=== PATIENT | female | born 1995 | race African-American/Black ===

== ENCOUNTER 2017-02-25 12:37 | Emergency (ER) | payer BC, OTHER ==
[2017-02-25 12:45] VITALS: BP 130/77
--- NOTE | 2017-02-25 13:45 | ERNOTE ---
Chest Pain/Cardiac HPI Chief Complaint: Chest Pain Time Seen by Provider: 02/25/17 12:44 Source: patient Exam Limitations: no limitations Immunizations: IMMUNIZATION HX Immunizations Up to Date Yes History of Influenza Vaccine No Hx Pneumococcal Vaccination No Allergies/Adverse Reactions: Allergies No Known Allergies Allergy (Verified 02/25/17 12:47) Home Medications: HOME MEDICATIONS Ibuprofen [Motrin] 800 mg PO TID PRN 5 Days tablet 02/25/17 [Last Taken Unknown ] Narrative: Patient presents for left anterior chest wall pain. Patient has been seen at [place] and discharged home. sHe states that she is not sure if she is . Denies any cough congestion or fever Review of Systems - Review of Systems Constitutional: Present: no symptoms reported EYE: Present: no symptoms reported Respiratory: Present: no symptoms reported Cardiology: Present: See HPI - Patient's Past Medical History Patient History - Medical: No pertinent hx Patient History - Cardiac/Respiratory: No pertinent hx Patient History - Cancer: No Hx of Cancer Patient History - Surgical Procedures: Ear Tubes Patient History - Other: None - Family History Father Family History - Medical: Diabetes Type 2 - Social History Living Situations: home Psych History: No pertinent hx Smoking Status: Never smoker Have you smoked in the past 12 months: No - Immunizations Immunizations Up to Date: Yes Hx Pneumococcal Vaccination: No History of Influenza Vaccine: No Physical Exam - Physical Exam General Appearance: Present: wd/wn, alert, no apparent distress Head Exam: Present: normal inspection, no evidence of injury Ears, Nose, Throat: Present: normal ENT inspection Neck: Present: normal inspection, nontender Respiratory: Present: no respiratory distress, normal breath sounds, chest tenderness, other - otherwise patient's vitals are completely stable at this time. Cardiovascular/Chest: Present: regular rate, rhythm - patient does have acute chest wall tenderness and area of the midclavicular line on the left side and ribs #3 and 4. With this examiner (I can reproduce this patient's exact pain., no murmur, normal peripheral pulses ED Progress - Results and Orders Patient's Lab Results:: I have reviewed the patient's lab results. - Vital Signs Patient's Vital Signs:: I have reviewed the patient's vital signs. Vital Signs: Vital Signs 02/25/17 12:40 Temperature 36.7 C Pulse Rate 58 L Respiratory 18 Rate Blood Pressure 130/77 O2 Sat by Pulse 97 Oximetry - EKG EKG: NSR - Progress/Reassessment Chief Complaint: Chest Pain Plan - Plan Plan: This patient has costochondritis and will be treated as appropriate. Departure Clinical Impression: Costochondritis, acute - Departure Disposition: Home self-care Condition: Good Instructions: Costochondritis, [id number] Prescriptions: Ibuprofen [Motrin] 800 mg PO TID PRN 5 Days tablet PRN Reason: Pain
== END 2017-02-25 13:51 | disposition home or self-care (01) ==
LOC: ER 12:37
DX: M94.0 Chondrocostal junction syndrome [Tietze] (principal)

== ENCOUNTER 2018-10-19 18:56 | Inpatient (IN) ==
[2018-10-19] MEDS ORDERED: OXYTOCIN/DEXTROSE 5%-WATER 30 UNITS/500 ML BAG IV ONE (18:58)
[2018-10-19] MEDS ORDERED: PENICILLIN G POTASSIUM 5 MILLIONUNT in DEXTROSE 5 % IN WATER 100 ML IV ONE ×2 (18:58)
[2018-10-19] MEDS ORDERED: RINGER'S SOLUTION,LACTATED 1,000 ML IV PRN (18:58)
[2018-10-19] MEDS ORDERED: RINGER'S SOLUTION,LACTATED 1,000 ML IV ONE (18:58)
[2018-10-19 19:53] LABS: Cocaine Ur Negative (NEGATIVE); Urine Barbiturate Negative (NEGATIVE); Urine Benzodiazepines Negative (NEGATIVE); Urine Opiates Negative (NEGATIVE); Urine PCP Negative (NEGATIVE); Urine THC Negative (NEGATIVE)
[2018-10-19] MEDS ORDERED: BUPIVACAINE HCL/0.9 % NACL/PF 250 ML EP PRN (21:24)
[2018-10-19] MEDS ORDERED: ONDANSETRON HCL/PF 2 MG/ML VIAL IV PRN (21:24)
[2018-10-19] MEDS ORDERED: NALOXONE HCL 1 MG/1 ML SYRG IV PRN (21:24)
[2018-10-19] MEDS ORDERED: LIDOCAINE HCL/EPINEPHRINE 20 ML VIAL IJ ONE (21:25)
[2018-10-19] MEDS ORDERED: BUPIVACAINE HCL/PF 30 ML VIAL EP SCH (21:30)
--- NOTE | 2018-10-19 21:46 | ANES ---
Anesthesia Pre Procedure Eval Vitals/Labs: Last Vital Signs Temp 36.4 C 10/19/18 19:28 Pulse 74 10/19/18 19:28 Resp 16 10/19/18 19:28 BP 106/65 10/19/18 19:28 Pulse Ox 98 10/19/18 19:28 HOME MEDICATIONS Pnv No.95/Ferrous Fum/Folic AC [ Caplet] 1 cap PO DAILY 10/09/18 [Last Taken 10/09/18] Allergies/Adverse Reactions: Allergies Allergy/AdvReac Type Severity Reaction Status Date / Time No Known Allergies Allergy Verified 10/19/18 19:00 - Planned Procedure Planned Procedure: Labor epidural Medication List Reviewed:: Yes Allergies Verified: Yes Medical History (Updated 09/09/18 @ 18:12 by Brent Velasco DO) Nausea and vomiting during (Acute) Urinary tract infection affecting (Acute) Vaginal bleeding during (Acute) Bacterial vaginitis (Acute) Tx after 12wks gestation Nausea & vomiting (Acute) (Acute) Marijuana user (Chronic) Tobacco abuse (Chronic) ADHD (Chronic) Anxiety and depression (Chronic) ADHD Onset Date: Unknown Anxiety Onset Date: Unknown Depression Onset Date: Unknown Ovarian cyst Onset Date: ~2012 [place] teeth removed Onset Date: Unknown Surgical History (Updated 11/24/17 @ 14:54 by Mariola Lindo RN) History of placement of ear tubes Onset Date: Unknown Family History (Updated 03/08/18 @ 11:39 by Maryan Finley RN) Father Hypertension Diabetes Grandfather Heart disease Hypertension Bone cancer Grandmother Hypertension Breast cancer Grandmother Diabetes Mother Breast cancer, Onset Age: 25 genetic testing negative- per mother - Cardiovascular Tolerate Activity: Good Heart Sounds: S1 & S2 - Anesthesia Assessment and Plan ASA Class: PS, II Anesthesia Type Plan: Epidural
--- NOTE | 2018-10-19 22:10 | ANES ---
Post Anesthesia Assessment - Vital Signs Vitals: Last Vital Signs Temp 36.4 C 10/19/18 19:28 Pulse 74 10/19/18 19:28 Resp 16 10/19/18 19:28 BP 106/65 10/19/18 19:28 Pulse Ox 98 10/19/18 19:28 Airway Patency: Normal - Mental Status Level Of Consciousness: Awake - N/V Assessment Nausea/Vomiting Presence: None Dehydration:: No
--- NOTE | 2018-10-19 22:10 | ANES ---
Anesthesia Procedure Note Procedure Note: ANESTHESIA PROCEDURE NOTE Date of Procedure: 10/19/2018. Time of procedure: 2149. Performed by: Bari Bah CRNA Icebox Man: None. Preprocedure diagnosis: Active labor. Post procedure diagnosis: Same. Procedure: Insertion of labor epidural. Indications: The patient is a 23 -year-old female in active labor requesting labor epidural for pain management. Findings: See below. Details of the procedure: The patient was placed in a sitting position. DuraPrep as well as Betadine swabs X3 was applied to the patient's back. Patient was then draped in a sterile fashion. Lidocaine 1% was infiltrated to the skin and subcutaneous tissues at the level of the L3-4 interspace. The epidural space was identified using a 18-gauge Tuohy needle with [id number] technique. Epidural catheter was inserted to a depth of 13 centimeters at skin. Dark red blood was noted in the epidural catheter with aspiration of blood. Catheter was removed intact. The procedure was then repeated. The epidural space was again identified with [id number] technique. Epidural catheter was inserted to a depth of 13 cm at skin. Negative test dose was elicited using 3 mL of 1.5% preservative-free lidocaine plus epinephrine 1 200,000. The epidural catheter was then taped and secured in place. A loading dose of 8 mL of 0.25% preservative-free bupivacaine was administered to the epidural catheter after negative aspiration for blood and CSF. EBL: Minimal. Fluids: N/A. Specimen: N/A. Post procedure condition: The patient tolerated the procedure well. No complications were noted. Thank you for this consultation. Bari Bah CRNA
[2018-10-19] MEDS: PENICILLIN G POTASSIUM 2.5 MILLIONUNT in DEXTROSE 5 % IN WATER 100 ML IV SCH ×2 (23:42)
[2018-10-20] MEDS: PENICILLIN G POTASSIUM 2.5 MILLIONUNT in DEXTROSE 5 % IN WATER 100 ML IV SCH ×2 (03:20)
[2018-10-20] MEDS ORDERED: TERBUTALINE SULFATE 1 MG/ML VIAL ONE (04:22)
--- NOTE | 2018-10-20 04:50 | HP ---
Chief Complaint - Chief Complaint Date of Service: 10/20/18 Time of Service: 04:41 Chief Complaint: painful contractions History of Present Illness: 23 yo at 39 3/7 weeks presents to L&D complaining of painful contractions of increasing frequency and intensity. This complicated by anxiety/depression, ADHD, THC use, and tobacco use. Rh positive Rubella immune GBS positive Medical History (Updated 09/09/18 @ 18:12 by Brent Velasco DO) Nausea and vomiting during (Acute) Urinary tract infection affecting (Acute) Vaginal bleeding during (Acute) Bacterial vaginitis (Acute) Tx after 12wks gestation Nausea & vomiting (Acute) (Acute) Marijuana user (Chronic) Tobacco abuse (Chronic) ADHD (Chronic) Anxiety and depression (Chronic) ADHD Onset Date: Unknown Anxiety Onset Date: Unknown Depression Onset Date: Unknown Ovarian cyst Onset Date: ~2012 [place] teeth removed Onset Date: Unknown Surgical History: Surgical History (Updated 11/24/17 @ 14:54 by Mariola Lindo RN) History of placement of ear tubes Onset Date: Unknown Family History: Family History (Updated 03/08/18 @ 11:39 by Maryan Finley RN) Father Hypertension Diabetes Grandfather Heart disease Hypertension Bone cancer Grandmother Hypertension Breast cancer Grandmother Diabetes Mother Breast cancer, Onset Age: 25 genetic testing negative- per mother Social History: Preferred Language Tristanian Smoking Status Current every day smoker Smoking packs per day 1 Psych History No pertinent hx (Last Updated 10/18/18 @ 14:30 by Brent Velasco DO) No Social History Section defined Review Of Systems (GEN) - Review of Systems Generalized/Overall Review: Present: No Symptoms Reported EENTM: Present: No Symptoms Reported Respiratory: Present: No Symptoms Reported Cardiac: Present: No Symptoms Reported Abdominal: Present: Other - contractions Genitourinary: Present: Other - vaginal pressure Musculoskeletal: Present: No Symptoms Reported Neurological: Present: No Symptoms Reported Skin: Present: No Symptoms Reported Endocrine: Present: No Symptoms Reported Immunizations: IMMUNIZATION HX Immunizations Up to Date Yes History of Influenza Vaccine No Hx Pneumococcal Vaccination No Allergies/Adverse Reactions: Allergies Allergy/AdvReac Type Severity Reaction Status Date / Time No Known Allergies Allergy Verified 10/19/18 19:00 Home Medications: HOME MEDICATIONS Pnv No.95/Ferrous Fum/Folic AC [ Caplet] 1 cap PO DAILY 10/09/18 [Last Taken 10/09/18] Exam - Exam Vital Signs: Vital Signs - Last Taken Temp 36.4 C 10/19/18 19:28 Pulse 74 10/19/18 19:28 Resp 16 10/19/18 19:28 BP 106/65 10/19/18 19:28 Pulse Ox 98 10/19/18 19:28 Constitutional: Present: Alert, Oriented x3, Cooperative, Mild distress ENT Exam: Present: hearing grossly normal Breasts: Present: Exam deferred Respiratory: Present: lungs clear, no respiratory distress Cardiovascular/Chest: Present: regular rate, rhythm Abdomen: Present: soft, nontender, no rebound tenderness, other - gravid /Rectal: Present: Other - cervix 3/80/-1 Extremity: Present: no calf tenderness, lower extremity edema Skin Exam: Present: normal color, warm/dry, no cyanosis Neurologic: Present: alert, normal mood/affect, oriented x 3 Appearance: Present: appropriate appearance, appropriate insight Eye contact: Present: cooperative, good eye contact Thoughts: Present: normal thought pattern Diagnostic Studies: Laboratory Results Negative (NEGATIVE) 10/19/18 Unknown Negative (NEGATIVE) 10/19/18 Unknown Ur Phencyclidine Scrn Negative (NEGATIVE) 10/19/18 Unknown Urine Amphetamine Negative (NEGATIVE) 10/19/18 Unknown U Benzodiazepines Scrn Negative (NEGATIVE) 10/19/18 Unknown Negative (NEGATIVE) 10/19/18 Unknown Negative (NEGATIVE) 10/19/18 Unknown Assessment/Plan - Assessment/Plan (1) Labor established Assessment: Admit for routine management of labor. Epidural PRN. IV PCN per GBS protocol. Problem: Acute (2) GBS (group B Streptococcus carrier), +RV culture, currently Problem: Acute (3) Tobacco abuse Problem: Resolved (4) Marijuana user Problem: Resolved (5) ADHD Problem: Chronic Qualifiers: Attention deficit-hyperactivity disorder type: unspecified (6) Anxiety and depression Problem: Chronic
--- NOTE | 2018-10-20 04:59 | PN ---
Progess Note - Interim Date: 10/20/18 Time: 04:50 Narrative: 10/20/18 04:50 Called in to see patient for recurrent severe variables and late decelerations Patient comfortable with epidural Vital signs stable. Pitocin at 3 mu/min. FHT: 115 baseline, good beat to beat variability, frequent variables down to the 70s and 80s with a quick return to baseline, frequent late decelerations. After turning Pitocin off, multiple position changes, and amnioinfusion variables and late decelerations improved. Contractions q 2-4 min Cervix: Complete/+2, SROM at 0330 Impression: Intrauterine at 39-3/7 weeks in labor. GBS positive - s/p 3 doses of PCN. Category 3 now category 2 tracing. Plan: OR crew called in for stand-by. Will attempt and use forceps if needed. Patient and family counseled on the r/b/a to operative vaginal delivery and c/s.
--- NOTE | 2018-10-20 05:31 | ANES ---
Anesthesia Procedure Note Procedure Note: 20 ml 2% Lidocaine administered to epidural catheter per Dr. Velasco.
[2018-10-20] MEDS ORDERED: BENZOCAINE/MENTHOL 81 SPRAY CAN TP PRN (06:14)
[2018-10-20] MEDS ORDERED: SENNOSIDES 8.6 MG TABLET PO PRN (06:14)
[2018-10-20] MEDS ORDERED: OXYTOCIN/DEXTROSE 5%-WATER 30 UNITS/500 ML BAG IV ONE (06:14)
[2018-10-20] MEDS ORDERED: HYDROCORTISONE 30 APPL TUBE TP PRN (06:14)
[2018-10-20] MEDS ORDERED: RINGER'S SOLUTION,LACTATED 1,000 ML IV PRN (06:14)
[2018-10-20] MEDS ORDERED: BISACODYL 10 MG SUPP.RECT RC PRN (06:14)
[2018-10-20] MEDS ORDERED: GLYCERIN/WITCH HAZEL LEAF 40 APPL BOX TP PRN (06:14)
--- NOTE | 2018-10-20 06:39 | OR ---
Operative Report - Dictated Report Narrative: Indication: Suspicion of potential/immediate compromise Pre Procedure: Patient was counseled to the risk, benefits, and alternatives to operative vaginal delivery. All questions were answered. Patient consented to proceed with operative vaginal delivery. Cervix was completely dilated and effaced, maternal- size appropriate for application, bladder was emptied, flexion point identified, cup choice appropriate for application site, maternal tissue excluded from vacuum cup heart rate interpretation: Recurrent severe variables and late decelerations followed by a prolonged deceleration in the 60s, EFW 3200 g, station +2, Position of head MALENA Anesthesia: epidural Procedure: Total application time of the Kiwi Pro with Palm Pump was 90 seconds Maximum vacuum achieved was 500 mm Hg Number of pulls 2 Number of involuntary releases 2 Vacuum reduced between contractions Advancement in station with each pull Degree of rotation 0-45 Post Procedure: Viable male born at 0526 on 10/20/2018 with Apgars 7 and 9, weighing 3145 g in MALENA position. Infant had a tight nuchal cord 2, body cord 1. Infant came out floppy and pale but at 30 seconds began vigorously crying. The cord was clamped and cut and was handed to awaiting offensive coordinator. Placenta spontaneously delivered EBL 100 mL Cord gases collected, Arterial: 7.14/71.4/36.7/-6.7/23.9 Venous: 7.34/41.9/36.7/-3.3/47.1/22.3 Lacerations - bilateral periurethral first-degree lacerations with no repair needed no injury, shoulder dystocia encountered due to dose epidural kicking in right after delivery of head. SHOULDER DYSTOCIA TEMPLATE: 2nd stage of labor: 73 minutes Head/body interval: Approximately 2 minutes Diabetes: No Attendants at : OB: Brent Velasco, Ped: Dr. Jones, Nurses: Mariam Ayala and Ghazala Villatoro, Others: OR Crew - Maryan Mitchell, Tayler Nolasco, and LANDSCAPING MANAGER- Bari Bah Position of head at delivery: MALENA Right shoulder anterior Maneuvers used: Mónica yes, Suprapubic pressure yes, Wood's screw yes, Delivery of posterior shoulder no, Arm sweep no, Episiotomy no, Other: None Description: Because of recurrent severe variables and late decelerations the patient was taken back to the OR for vaginal delivery with set up on standby. Patient was given a dose epidural because of a prolonged deceleration in the 60s. She was able to bring the baby down to +3 station. Vacuum was used to shorten the second stage. After delivery of the head, however, her dose kicked in and she was unable to push effectively. Using the above mentioned procedures and fundal pressure we were able to deliver the . Nuchal cord 2 was discovered with delivery of head but was too tight to be reduced. Infant moving all extremities at yes, Injuries noted: none Mother informed of dystocia and potential sequelae. Recommendations for future pregnancies: Do not feel shoulder dystocia will be an issue with future deliveries since this was due to a dose epidural. History for History for Definition: * The number of deliveries resulting in a live the patient experienced prior to current hospitalization * The previous delivery of live twins or any live multiple gestation is considered one live event. *If primagravida or nulliparous is documented select zero for the number of previous live births. Live Events: Live Events: 0
[2018-10-20] MEDS: ACETAMINOPHEN 325 MG TABLET PO PRN ×2 (08:05→21:03)
[2018-10-20] MEDS: DOCUSATE SODIUM 100 MG CAPSULE PO SCH ×2 (08:05→21:08)
[2018-10-20] MEDS: PRENATAL VITS96/IRON FUM/FOLIC 1 TAB TABLET PO SCH (08:07)
[2018-10-20] MEDS: IBUPROFEN 800 MG TABLET PO PRN ×2 (08:44→21:41)
[2018-10-20] MEDS: oxyCODONE HCL/ACETAMINOPHEN 1 TAB TABLET PO PRN ×4 (10:19→23:37)
[2018-10-21] MEDS: IBUPROFEN 800 MG TABLET PO PRN ×2 (02:58→10:20)
[2018-10-21] MEDS: ACETAMINOPHEN 325 MG TABLET PO PRN ×3 (07:48→21:35)
[2018-10-21] MEDS: PRENATAL VITS96/IRON FUM/FOLIC 1 TAB TABLET PO SCH ×2 (07:48→08:57)
--- NOTE | 2018-10-21 07:57 | PN ---
Subjective - Date and Time Seen Date: 10/21/18 Time: 07:56 Objective - Vitals Vitals: Last Vital Signs Temp 36.5 C 10/20/18 09:50 Pulse 76 10/21/18 00:54 Resp 16 10/21/18 00:54 BP 108/66 10/21/18 00:54 Pulse Ox 98 10/21/18 00:54 Patient complains of uterine cramping. Bottle feeding Lochia wnl Abdomen - soft, nontender Uterus - firm, at umbilicus - 1 No calf tenderness Impression: day #1 - s/p spontaneous vaginal delivery. Plan: Continue routine care Cauti Physician Documentation - Urinary Catheter Management Urethral ([place]) Date of Insertion: 10/19/18 Time of Insertion: 22:40 Assessment/Plan - Problems/Diagnosis (1) Labor established Problem: Acute (2) GBS (group B Streptococcus carrier), +RV culture, currently Problem: Acute (3) Tobacco abuse Problem: Resolved (4) Marijuana user Problem: Resolved (5) ADHD Problem: Chronic Qualifiers: Attention deficit-hyperactivity disorder type: unspecified (6) Anxiety and depression Problem: Chronic
[2018-10-21] MEDS: DOCUSATE SODIUM 100 MG CAPSULE PO SCH ×2 (10:20→21:36)
[2018-10-22 06:55] VITALS: BP 113/65
[2018-10-22] MEDS: DOCUSATE SODIUM 100 MG CAPSULE PO SCH (10:21)
[2018-10-22] MEDS: PRENATAL VITS96/IRON FUM/FOLIC 1 TAB TABLET PO SCH (10:21)
--- NOTE | 2018-10-22 12:54 | PN ---
Subjective - Date and Time Seen Date: 10/22/18 Time: 12:52 Objective - Vitals Vitals: Last Vital Signs Temp 36.9 C 10/22/18 06:15 Pulse 62 10/22/18 06:15 Resp 18 10/22/18 06:15 BP 113/65 10/22/18 06:15 Pulse Ox 98 10/22/18 06:15 Patient denies complaints. Bottle feeding Lochia wnl Abdomen - soft, nontender Uterus - firm, at umbilicus - 2 No calf tenderness Impression: day #2 - s/p spontaneous vaginal delivery. Plan: Routine discharge instructions Cauti Physician Documentation - Urinary Catheter Management Urethral ([place]) Date of Insertion: 10/19/18 Time of Insertion: 22:40 Assessment/Plan - Problems/Diagnosis (1) Labor established Problem: Acute (2) GBS (group B Streptococcus carrier), +RV culture, currently Problem: Acute (3) Tobacco abuse Problem: Resolved (4) Marijuana user Problem: Resolved (5) ADHD Problem: Chronic Qualifiers: Attention deficit-hyperactivity disorder type: unspecified (6) Anxiety and depression Problem: Chronic
== END 2018-10-22 14:00 | disposition home or self-care (01) | DRG 806 ==
LOC: OB 18:56
PROVIDERS: ADMIT Obstetrics & Gynecology; ATTEND Obstetrics & Gynecology
CPT/HCPCS: 59025; 80307; 88307